=== PATIENT | male | born 1985 | race Caucasian/White ===

== ENCOUNTER → 2021-10-07 10:32 | Outpatient (REF) | payer OTHER, SELFPAY ==
--- NOTE | 2021-10-07 | CA_ITS ---
Acquisition Time: 2021-10-07 10:48:44 Total Exercise Time: 00:14:40 Test Indications: CP Medications: SEE CHART Protocol: BREA Max HR: 171 BPM 91% of Pred: 187 BPM Max BP: 174/070 mmHG Max Work Load: 17.2 METS Exercis stress test with exercise 14 min 40 sec of Brea protocol, achieving 91% MPHR, 17.2 METS, without anginal symptoms, with isolated PVC, with normotensive response to exercise, without EKG changes meeting criteria for ischemia. Test reviewed with Dr Craig. Referred By: Saul Valente Overread By: MILLI ELLIS
== END ==
LOC: HO.CARD 10:32
PROVIDERS: PCP Internal Medicine Medical Oncology; Visit Provider Internal Medicine Medical Oncology
DX: R07.89 Other chest pain (principal)
CPT/HCPCS: 93017

== ENCOUNTER → 2021-10-08 07:29 | Outpatient (REF) | payer OTHER, SELFPAY ==
--- NOTE | 2021-10-08 07:33 | CA_ITS ---
Transthoracic Echocardiogram Patient (Last, First, Middle): Qamar Harrington, Gender: Male Date of : 1985 Age: 35 Procedure Date: 10/08/2021 Procedure Type: Transthoracic Echocardiogram Location: OP Height: 177.8 cm Weight: 70.31 kg BSA: 1.87 m2 Heart Rate: bpm BP: 130 / 65 mmHg Software Project Manager: BARBARA Referring MD: Saul Valente MD Symptoms: CP Study Quality: Good ECG Rhythm: Sinus Conclusions: - The left ventricular systolic function is low normal. The visually estimated ejection fraction is between 50-55%. - No obvious valvular pathology seen on this study. Findings Left Ventricle Normal left ventricular cavity size. There is normal left ventricular wall thickness. The left ventricular systolic function is low normal. The visually estimated ejection fraction is between 50-55%. There is no evidence of regional wall motion abnormalities. Diastolic function is normal for age. Right Ventricle Normal right ventricular cavity size and systolic function. Atria Both atria are normal in size. Aortic Valve There is a normal trileaflet aortic valve. There is no aortic valve stenosis. There is no aortic valve regurgitation. Mitral Valve The mitral valve appears normal. There is trace mitral valve regurgitation. There is no mitral valve stenosis. Pulmonic Valve The pulmonic valve was not well visualized. Tricuspid Valve Normal tricuspid valve structure. There is no tricuspid valve regurgitation. Tricuspid regurgitation envelope is inadequate for calculation of right ventricular systolic pressure. Great Vessels The aortic annulus, sinuses of valsalva, and asc aorta are normal in size. Venous The inferior vena cava is normal in size and collapses greater than 50% with inspiration. Pericardium/Pleural There is no evidence of pericardial effusion. Prior Study Comparison No prior study available for comparison. Recommendations, Care & Conclusions No obvious valvular pathology seen on this study. Measurements 2D Linear Measurements IVSd: 0.80 0.6-0.9/0.6-1.0 cm LVIDd: 4.98 3.9-5.3/4.2-5.9 cm LVIDd Index: 2.66 2.4-3.2/2.2-3.1 cm/m2 LVIDs: 3.18 2.0-3.6 cm LVPWd: 0.95 0.7-1.1 cm LA Diam: 2.70 2.7-3.8/3.0-4.0 cm LAIDs Index: 1.44 1.5-2.3 cm/m2 LV Mass: 188.71 67-162/88-224 g LV Mass Index: 100.91 43-95/49-115 g/m2 LVOT Diam: 2.40 3.0+(-)1.3 cm 2D Systolic Function EF 4C: 54.10 >55% EF 2C: 60.80 >55% EF BiP: 59.20 >55% Mitral Valve MV Pk E: 0.45 MV PK A: 0.31 MV Decel Time: 183.00 E/A: 1.50 E'Lateral: 17.20 E'Medial: 11.40 E/E' Med: 4.00 E/E' Lat: 2.60 PHT: 54.00 MVA PHT: 4.07 Decel Swift: 2.48 Aortic Valve AoV Pk Martín: 0.87 AoV Pk Grad: 3.00 LVOT LVOT Pk Martín: 0.70 LVOT Mn Martín: 0.48 LVOT VTI: 0.16 LVOT Pk Grad: 2.00 LVOT Mn Grad: 1.00 LVOT Diam: 2.40 LVOT Area: 4.52 Diastolic Function MV Pk E: 0.45 MV Pk A: 0.31 E/A: 1.50 E'Medial: 11.40 E/E' Med: 4.00 E' Laterial: 17.20 E/E' Lat: 2.60 Right Ventricle TAPSE (mm): 2.30 TVS' Martín: 13.80 Tricuspid Valve RA Press: 3.00 Great Vessels Aorta Sinus of Valsalva: 3.44 2.0-3.5 cm Ao Asc: 3.10 2.1-3.4 cm Updated in Other Vendor System with Status of Final Adrian Craig MD electronically signed on 10/10/2021 11:06:30 AM with status of Final
== END ==
LOC: HO.CARD 07:29
PROVIDERS: PCP Internal Medicine Medical Oncology; Visit Provider Internal Medicine Medical Oncology
DX: R07.9 Chest pain, unspecified (principal)
CPT/HCPCS: 93306

== ENCOUNTER 2024-06-28 15:54 | Outpatient (REF) | payer OTHER, SELFPAY ==
--- NOTE | ~2024-06-28 | US_ITS ---
EXAMINATION: US TRIPLEX LOWER EXTREMITY, LEFT CLINICAL INFORMATION: Pain left thigh, rule out DVT COMPARISON: None available. TECHNIQUE: Color-flow triplex imaging with spectral analysis and compression Doppler were performed on the left lower extremity. FINDINGS: Respiratory variation, normal compression and augmented flow are noted throughout the left lower extremity. The visualized common femoral vein, superficial femoral vein, profunda femoral vein, popliteal vein and midcalf peroneal and posterior tibial venous segments show no evidence of deep venous thrombosis. There is no Segura's cyst. US/US venous duplex LE LT IMPRESSION: No evidence of deep venous thrombosis involving the left lower extremity. Electronically signed by: Osman Ta DO 06/28/2024 04:42 PM EST
--- OUTSIDE RECORDS SUMMARY | 2024-07-04 04:23 | XMS_ITS ---
Author Organization Saul Valente III, MD Address [address] [address] Care Team Providers Care Ui Programmer Name Role Phone Saul Valente Primary Care Provider Allergies Allergen (clinical drug ingredient) Drug/Non Drug Allergy documented on EMR Reaction Allergy Type Onset Date Status No Known Drug Allergy Unknown Drug Allergy Active Results Component Value Reference Range Notes URINE DIP STICK Reviewed date:09/27/2023 03:48:04 PM Interpretation: Performing Lab: Notes/Report: SG 1.010 1.005 - 1.025 pH 5.0 5.0 - 9.0 MADDIE Negative Negative - NIT Negative Negative - PRO 15 Negative - Trace GLU Negative Negative - KET Negative Negative - UBG 0.2 0.1 - 1.8 IVETT Negative 0.2 - 1.3 BLD Negative Negative - Reason For Referral Reason consult and treat Diagnosis 1 Vasectomy evaluation (Z30.09) Referral Organization Saul Valente III, MD Referring Provider First Name Saul Referring Provider Last Name Sidra Referring Provider Speciality Internal M edicine Referred Provider Joselyn Zarate Referred Provider Specialty Urology General Notes Teresa Bustillos 2023 10:58:31 AM EDT > Faxed with progress note and referral. Tressa Amber 10/28/2023 09:25:29 AM EDT > patient has not called [facility]. Patient does have to call himself and schedule an appointment. Patient had an appointment last year for the same reason and he was a no show to that appointment. I called patient and left a message with the contact information. Tressa Amber 11/08/2023 09:59:24 AM EDT > Called patient to see if appointment has been scheduled. Left message to give the office a call back, Teresa Bustillos 11/24/2023 10:30:16 AM EDT > Called Patient to see if appointment has been scheduled. Left message to give the office a call back. Referral Priority Routine REASON FOR VISIT Annual Exam Social History Tobacco Use: Social History Observation Description Date Details (start date - stop date) Former Smoker NA - NA Sex Assigned At : Social History Observation Description Sex Assigned At Male Tobacco Use/Smoking Question Answer Notes Patient is a former smoker How long has it been since you last smoked? 5-10 years Additional Findings: Tobacco Non-User Ex-cigaret te smoker Alcohol Screen Question Answer Notes Did you have a drink contain ing alcohol in the past year? Yes How often did you have a dri nk containing alcohol in the past year? 2 to 3 times a week (3 points) How many drinks did you have on a typical day when you were drinking in the past year? 1 or 2 drinks (0 point) How often did you have 6 or more drinks on one occasion in the past year? Never (0 point) Points 3 Interpretation Negative Vital Signs Temperature 99.1 degrees Fahrenheit 09/27/19 24 Blood pressure systolic 144 mm Hg 09/27/19 24 Blood pressure diastolic 79 mm Hg 024 Heart Rate 88 /min 09/27/2023 Height 69 in 09/27/2023 Weight 144 lbs 09/27/2023 BMI 21.26 kg/m2 09/27/2023 Encounters Encounter Location Date Provider Diagnosis Saul Valente III, MD [address] [place] [address] [place] [address] 09/27/2023 Saul Valente History of seizure Z87.898 ; Opioid dependence in remission F11.21 ; Former smoker Z87.891 and History of depression Z86.59 Assessments Encounter Date Diagnosis (ICD Code) Assessment Notes Treatment Notes Treatment Clinical Notes 09/27/2023 History of seizure (ICD-10 - Z87.898) He has had no seizures since his last visit. 09/27/2023 Opioid dependence in remission (ICD-10 - F11.21) He had a period of oral opiate use in high school after his mother . He has been to rehabilitation and is now in recovery. 09/27/2023 Former smoker (ICD-10 - Z87.891) He has a plan to prevent relapse in times of stress and illness. 09/27/2023 History of depression (ICD-10 - Z86.59) He did not appear depressed today. He has not takien antidepressant medication in many years. Surveillance for recurrence will be done. Plan Of Treatment Pending Test Test Name Order Date PROFILE, FASTING (COMPREHENSIVE METABOLI C) 09/27/2023 CBC WITH AUTO DIFF 09/27/2023 Lipid Panel 09/27/2023 Referrals Referral Date Details 09/27/2023 09/27/2023, [facility] Follow Up: 1 Year, Reason: O V, Annual Exam Provider Name:Saul Valente, 07/19/2024 10:15:00 AM, [address] [place] [address] [address], [place], [phone], Provider Name:Saul Valente, 09/28/2024 03:30:00 PM, [address] [place] [address] [address], [place], [phone], Progress Notes * Qamar COLEMANDOB:1985 (37 yo M)Acc No.[id number]:09/27/2023 Progress Notes Patient:?Qamar Coleman Provider:?Saul Valente MD :1985???Age:37 Y???Sex:Male Abdon e:09/27/2023 Address:[address] [place] [address] [facility] Subjective: * Chief Complaints: * ???Annual Exam * HPI: ???Depression Screening:? He returns to the office at the age of 37 for an annual physical examination. He had an unusual headache in his occipital area 2 months ago but it has resolved. He is not currently working. He is taking care of his 2 children. His is employed. He had a corneal abrasion several months ago for which he went to urgent care. His vitiligo is unchanged. He feels healthy and well. His appetite is good and he is sleeping well.He is not smoking. ?PHQ-9?Little interest or pleasure in doing things?Not at all ?Feeling down, depressed, or hopeless?Not at all ?Trouble falling or staying asleep, or sleeping too much?Not at all ?Feeling tired or having little energy?Not at all ?Poor appetite or overeating?Not at all ?Feeling bad about yourself or that you are a failure, or have let yourself or your family down?Not at all ?Trouble concentrating on things, such as reading the newspaper or watching television?Not at all ?Moving or speaking so slowly that other people could have noticed; or the opposite, being so fidgety or restless that you have been moving around a lot more than usual?Not at all ?Thoughts that you would be better off or of hurting yourself in some way?Not at all ?Total Score?0 ???COVID-19 Screening:?Questions?Have you experienced fever, chills, cough, sore throat, shortness of breath, difficulty breathing, muscle aches, loss of taste or smell??No ?Have you been exposed to the virus within the last 10 days??No ?Have you travelled internationally in the last 10 days??No ?Have you been exposed to COVID-19 in the past??No ???SDOH Questions:?SDOH Questions?In the past year have you been worried about losing your housing??No ?In the past year have you or any family members you live with been unable to get any of the following when it was really needed? Check all that apply:?None * ROS:?General/Constitutional:?pain?only normal aches and pains.?Chills?denies.?Fatigue?admits.?Fever?denies.?ENT:?Decreased hearing?denies.?Respiratory:?Cough?denies.?Cardiovascular:?Chest pain with exertion?denies.?Dyspnea on exertion?denies.?Shortness of breath?denies.?Gastrointestinal:?Constipation?occasional.?Decreased appetite?denies.?Diarrhea?denies.?Heartburn?occasional.?Nausea?denies.?Rectal bleeding?denies.?Vomiting?denies.?Hematology:?bruising?denies.?petechiae?denies.?Swollen glands?none have been noted.?Genitourinary:?Frequent urination?denies.?Musculoskeletal:?Muscle aches?denies.?Painful joints?denies.?Sciatica?denies.?Weakness?denies.?Skin:?Itching?denies.?Rash?denies.?Skin lesion(s)?denies.?Neurologic:?Difficulty speaking?denies.?Dizziness?denies.?Headache?denies.?Low back pain?denies.?Psychiatric:?Depressed mood?denies.? * Medical History:? * Surgical History:?dental ext raction * Hospitalization/Major Diagno stic Procedure:?Denies Past Hospitalization * Family History:?Father: live salmeron?Mother: 50 yrs, Breast cancer, onset age 40, diagnosed with Cancer.?1 brother(s) , 2 sister(s) - healthy. 1 son(s) , 1 daughter(s) . .? His mother's sister had breast cancer in her early 40s. His 2 sisters have had genetic testing and are positive for BRCA mutations. His mother at the age of 50 of breast cancer. His father is alive and well. A sister is planning on bilateral mastectomies. His uncle and anut are bipolar disordera and depression. * Social History:?Tobacco Use:?Tobacco Use/Smoking?Patient is a?former smoker ?How long has it been since you last smoked??5-10 years ?Additional Findings: Tobacco Non-User?Ex-cigarette smoker ???Drugs/Alcohol:?Drugs?Have you used drugs other than those for medical reasons in the past 12 months??Yes ?Marijuana??Yes ?Alcohol Screen?Did you have a drink containing alcohol in the past year??Yes ?How often did you have a drink containing alcohol in the past year??2 to 3 times a week (3 points) ?How many drinks did you have on a typical day when you were drinking in the past year??1 or 2 drinks (0 point) ?How often did you have 6 or more drinks on one occasion in the past year??Never (0 point) ?Points?3 ?Interpretation?Negative ???He was born in [place], [place]. He has been for one year to Ariana. They have no children. 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 He has some exposures to paint. * Medications:?None * Allergies:?No Known Drug All ergyno[Allergies Verified] Objective: * Vitals:?Ht: 69, Wt: 144, BMI :21.26, BP: 144/79, HR: 88, Temp: 99.1, Wt-k.32. * ???Past Orders: Lab:URINE DIP STICK * Order Date 09/27/2023 07/29/2021 SG 1.010 (Ref Range: 1.005 - 1.025) 1.020 pH 5.0 (Ref Range: 5.0 - 9.0) 6.5 MADDIE Negative (Ref Range: Negative -) neg NIT Negative (Ref Range: Negative -) neg PRO 15 (Ref Range: Negative - Trace) trace GLU Negative (Ref Range: Negative -) normal KET Negative (Ref Range: Negative -) neg UBG 0.2 (Ref Range: 0.1 - 1.8) neg IVETT Negative (Ref Range: 0.2 - 1.3) neg BLD Negative (Ref Range: Negative -) neg Menstrating NR n/a * Examination: ???General Examination: ?GENERAL APPEARANCE:?pleasant, well nourished, well developed, in no acute distress, calm and relaxed , man.?HEAD:?atraumatic, normocephalic.?EYES:?eomi, perrla, anicteric, conjugate.?EARS:?normal.?NOSE:?septum intact.?ORAL CAVITY:?normal, unremarkable.?NECK/THYROID:?no jugular venous distention, no carotid bruit, thyroid normal.?LYMPH NODES:?no enlarged lymph nodes,spleen normal.?SKIN:?no suspicious lesions, anicteric.?HEART:?no clicks, gallops, murmurs, or rubs, regular rhythm, S1, S2 normal, no s3, or vascular bruits.?LUNGS:?clear to auscultation .?BREASTS:??no masses palpable bilaterally.?ABDOMEN:?bowel sounds normal, no ascites, no organomegaly, no mass.?RECTAL EXAM:?not examined.?MUSCULOSKELETAL:?extremities unremarkable, no clubbing, cyanosis or edema.?PERIPHERAL PULSES:?normal.?NEUROLOGIC:?alert and oriented, cranial nerves 2-12 grossly intact, deep tendon reflexes 2+ symmetrical, motor strength normal upper and lower extremities, sensory exam intact.?PSYCH:?alert, oriented.? Assessment: * Assessment: 1.?History of seizure - Z87. 898 (Primary), He has had no seizures since his last visit.?2.?Opioid dependence in remission - F11.21, He had a period of oral opiate use in high school after his mother . He has been to rehabilitation and is now in recovery.?3.?Former smoker - Z87.891, He has a plan to prevent relapse in times of stress and illness.?4.?History of depression - Z86.59, He did not appear depressed today. He has not takien antidepressant medication in many years. Surveillance for recurrence will be done.? Plan: * Treatment: * Labs:? * ?Lab: PROFILE, FASTING ( COMPREHENSIVE METABOLIC) ?Lab: CBC WITH AUTO DIFF ?Lab: Lipid Panel ?Lab: URINE DIP STICK ? Value Reference Range ?SG 1.010 1.005 - 1.025 * ?pH 5.0 5.0 - 9.0 * ?MADDIE Negative Negative - * ?NIT Negative Negative - * ?PRO 15 Negative - Trac e * ?GLU Negative Negative - * ?KET Negative Negative - * ?UBG 0.2 0.1 - 1.8 * ?IVETT Negative 0.2 - 1.3 * ?BLD Negative Negative - * Procedure Codes:?68503 URINE -NO MICRO * Preventive Medicine:? ??Counseling:?Smoking/Tobacco Use?Patient counseled on the dangers of tobacco use and urged to quit.?09/27/2023 * Follow Up:?1 Year (Reason: O V, Annual Exam) * Images: * Sign off status: Completed true * Provider:?Saul Valente MD Date:?11/2023 Generated for Emperatriz doyle/Benita/eTransmitting on:?07/04/2024 04:22 AM EST History and Physical Notes * HPI (History of Present Illness) Category Sub-Category Detail Notes Depression Screening PHQ-9 Little inte rest or pleasure in doing things: Not at all Feeling down, depressed, or hopeless: No t at all Trouble falling or staying asleep, or sl eeping too much: Not at all Feeling tired or having little energy: N ot at all Poor appetite or overeating: Not at all Feeling bad about yourself o r that you are a failure, or have let yourself or your family down: Not at all Trouble concentrating on thi ngs, such as reading the newspaper or watching television: Not at all Moving or speaking so slowly that other people could have noticed; or the opposite, being so fidgety or restless that you have been moving around a lot more than usual: Not at all Thoughts that you would be b elda off or of hurting yourself in some way: Not at all Total Score: 0 COVID-19 Screening Questions Have you expe rienced fever, chills, cough, sore throat, shortness of breath, difficulty breathing, muscle aches, loss of taste or smell?: No Have you been exposed to the virus withi n the last 10 days?: No Have you travelled internationally in e last 10 days?: No Have you been exposed to COVID-19 in the past?: No SDOH Questions SDOH Questions In the past year have you been worried about losing your housing?: No In the past year have you or any family members you live with been unable to get any of the following when it was really needed? Check all that apply:: None Examination Category Sub-Category Detail Notes General Examination GENERAL APPEARANCE: pleasant , well nourished, well developed, in no acute distress, calm and relaxed , man HEAD: atraumatic, normocep halic EYES: eomi, perrla, anicte cristal, conjugate EARS: normal NOSE: septum intact NECK/THYROID: no jugular venous di stention, no carotid bruit, thyroid normal HEART: no clicks, gallops, murmurs, or rubs, regular rhythm, S1, S2 normal, no s3, or vascular bruits LUNGS: clear to auscultatio n ABDOMEN: bowel sounds normal, no ascites, no organomegaly, no mass NEUROLOGIC: alert and oriented, cranial nerves 2-12 grossly intact, deep tendon reflexes 2+ symmetrical, motor strength normal upper and lower extremities, sensory exam intact SKIN: no suspicious lesion s, anicteric PERIPHERAL PULSES: normal BREASTS: no masses palpable b ilaterally MUSCULOSKELETAL: extremities unremark able, no clubbing, cyanosis or edema LYMPH NODES: no enlarged lymph no danielle,spleen normal RECTAL EXAM: not examined PSYCH: alert, oriented ORAL CAVITY: normal, unremarkable Consultation Request Notes Referral Date Referring Provider Referred Provider Not es 09/27/2023 Saul Valente [place], Urology con sult and treat
--- OUTSIDE RECORDS SUMMARY | 2024-07-04 04:23 | XMS_ITS | Patient Health Record ---
Author Organization Saul Valente III, MD Address [address] [facility] [address] Care Team Providers Care Water Sander Name Role Phone Saul Valente Primary Care Provider [phone] Allergies Allergen (clinical drug ingredient) Drug/Non Drug [...] 0.2 - 1.3 BLD Negative Negative - US venous duplex LE LT (Not yet reviewed by provider) Interpretation: Performing Lab: Notes/Report: [address] [address] Ultrasound Report Signed Patient: Qamar Harrington MR#: [id number] : 1985 Acct:[id number] Age/Sex: 38 / M ADM Date: 06/28/24 Loc: .US Attending Dr: Saul Valente MD Ordering Physician: Saul Valente MD Date of Service: 06/28/24 Procedure(s): US venous duplex LE LT Accession Number(s): [id number] cc: Saul Valente MD EXAMINATION: US TRIPLEX LOWER EXTREMITY, LEFT CLINICAL INFORMATION: Pain left thigh, rule out DVT COMPARISON: None available. TECHNIQUE: Color-flow triplex imaging with spectral analysis and compression Doppler were performed on the left lower extremity. FINDINGS: Respiratory variation, normal compression and augmented flow are noted throughout the left lower extremity. The visualized common femoral vein, superficial femoral vein, profunda femoral vein, popliteal vein and midcalf peroneal and posterior tibial venous segments show no evidence of deep venous thrombosis. There is no Segura's cyst. US/US venous duplex LE LT IMPRESSION: No evidence of deep venous thrombosis involving the left lower extremity. 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 TECHNIQUE: Color-flow triplex i maging with spectral analysis and compression Doppler were perform ed on the left lower extremity. FINDINGS: Respiratory variatio n, normal compression and augmented flow are noted throughout the left lower extremity. The visualized common femoral vein, superficial fe moral vein, profunda femoral vein, popliteal vein and midcalf peroneal and posterior tibial venous segments show no evidence of deep juan ous thrombosis. There is no Segura's cyst. U S/US venous duplex LE LT IMPRESSION: No evidence of deep venous thrombosis involving the left lower extremity. 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 , Teresa Bustillos 10/28/2023 09:25:29 AM EDT > patient has not called [facility]. Patient does have to call himself and schedule an appointment. Patient had an appointment last year for the same reason and he was a no show to that appointment. I called patient and left a message with the contact information. , Teresa Bustillos 11/08/2023 09:59:24 AM EDT > Called patient to see if appointment has been scheduled. Left message to give the office a call back, Teresa Bustillos 11/24/2023 10:30:16 AM EDT > Called Patient to see if appointment has been scheduled. Left message to give the office a call back. Referral Priority Routine Social History Sex Assigned At : Social History Observation Description Sex Assigned At Male Alcohol Screen Question Answer Notes Did you [...] Never (0 point) Points 3 Interpretation Negative Problems Problem Type SNOMED Code ICD Code Onset Dates Problem Status W/U Status Risk Notes Problem 3597833 Former smoker (Z87.891) Active confirmed He has a plan t o prevent relapse in times of stress and illness. Problem 322218275 History of depression (Z86.59) Active confirmed He did not appear depressed today. He has not takien antidepressant medication in many years. Surveillance for recurrence will be done. Problem 301758209 History of seizure (Z87.898) Active confirmed He has had no seizures since his last visit. Problem 941664881 Opioid dependence in remission (F11.21) Active confirmed He had a period of oral opiate use in high school after his mother . He has been to rehabilitation and is now in recovery. Vital Signs Heart Rate 82 /min 06/27/2024 Temperature 98.2 degrees Fahrenheit 06/27/2024 Blood pressure diastolic 82 mm Hg 06/27/2024 Height 69 in 06/27/2024 Blood pressure systolic 135 mm Hg 06/27/2024 Weight 150 lbs 06/27/2024 BMI 22.15 kg/m2 06/27/2024 Encounters Encounter Location Date Provider Diagnosis Saul Valente III, MD [address] [place] [address] [address] [place] [address] 09/27/2023 Saul Valente History of seizure Z87.898 ; Opioid dependence in remission F11.21 ; Former smoker Z87.891 and History of depression Z86.59 Salu Valente III, MD [address] [place] [address] [address] [place] [address] 06/27/2024 Saul Valente Leg pain, left M79.605 ; History of seizure Z87.898 and History of depression Z86.59 Assessments Encounter [...] to rehabilitation and is now in recovery. 06/27/2024 Leg pain, left (ICD-10 - M79.605) He will have an ultrasound to rule out DVT. This is likely tendinitis or inflammation of the muscle from overuse. If the ultrasound is negative he will use heat rest and ibuprofen. 06/27/2024 History of seizure (ICD-10 - Z87.898) He has had no seizures since his last visit. 09/27/2023 Former smoker (ICD-10 - Z87.891) He has a plan to prevent relapse in times of stress and illness. 06/27/2024 History of depression (ICD-10 - Z86.59) He did not appear depressed today. He has not takien antidepressant medication in many years. Surveillance for recurrence will be done. 09/27/2023 History of depression (ICD-10 - Z86.59) He did not appear depressed today. He has not takien antidepressant medication in many years. Surveillance for recurrence will be done. Plan Of Treatment Pending Test Test Name Order Date PROFILE, FASTING (COMPREHENSIVE METABOLI C) 09/27/2023 PROFILE, FASTING (COMPREHENSIVE METABOLI C) 07/04/2018 PROFILE, FASTING (COMPREHENSIVE METABOLI C) 09/24/2022 LIPID PANEL 07/04/2018 LIPID PANEL 09/24/2022 PSA, TOTAL 07/04/2018 CBC w DIFF 09/24/2022 CBC w DIFF 07/04/2018 US LEG LT VENOUS DOPPLER 06/27/2024 Echocardiogram 07/29/2021 CBC WITH AUTO DIFF 09/27/2023 ECHO STRESS TEST 07/29/2021 Lipid Panel 09/27/2023 CA stress test 09/24/2021 US venous duplex LE LT 06/28/2024 Next Appt Details Provider Name:Saul Valente, 07/19/2024 10:15:00 AM, [address] [place] [address] [address], [place], [address], Provider Name:Saul Valente, 09/28/2024 03:30:00 PM, [address] [place] [address] [address], [place], [address], Insurance Providers Payer Name Payer Address Payer Phone Subscriber Number Group Number Insured Name Patient Relationship to Insured Coverage Start Date Coverage End Date [facility] [address] [address] [place], [place] [id number] [phone] [id number] Qamar Harrington Self - patient is the insured Medical (General) History Medical History History ICD Code seizure age 17 opiate addiction age 17 through 20, nidia vering history of depression in high school former smoker No history Surgical History Surgery Date(Month/Year) dental extraction No history Hospitalization History Reason Date(Month/Year) No history
--- OUTSIDE RECORDS SUMMARY | 2024-07-04 04:23 | XMS_ITS ---
Author Organization Saul Valente III, MD Address [address] [place] [address] [place] [address] Care Team Providers Care Guest Relations Associate Name Role Phone Saul Valente Primary Care Provider Allergies Allergen (clinical drug ingredient) Drug/Non Drug Allergy documented on EMR Reaction Allergy Type Onset Date Status No Known Drug Allergy Unknown Drug Allergy Active REASON FOR VISIT Left side hamstring muscle pain, History of seizures, History of depression Social History Sex Assigned At : Social [...] Points 3 Interpretation Negative Vital Signs Temperature 98.2 degrees Fahrenheit 06/27/20 24 Blood pressure systolic 135 mm Hg 06/27/20 24 Blood pressure diastolic 82 mm Hg 024 Heart Rate 82 /min 06/27/2024 Height 69 in 06/27/2024 Weight 150 lbs 06/27/2024 BMI 22.15 kg/m2 06/27/2024 Encounters Encounter Location Date Provider Diagnosis Saul Valente III, MD [address] [place] [address] [place] [address] 06/27/2024 Saul Valente Leg pain, left M79.605 ; History of seizure Z87.898 and History of depression Z86.59 Assessments Encounter Date Diagnosis (ICD Code) Assessment Notes Treatment Notes Treatment Clinical Notes 06/27/2024 Leg pain, left (ICD-10 - M79.605) He will have an ultrasound to rule out DVT. This is likely tendinitis or inflammation of the muscle from overuse. If the ultrasound is negative he will use heat rest and ibuprofen. 06/27/2024 History of seizure (ICD-10 - Z87.898) He has had no seizures since his last visit. 06/27/2024 History of depression (ICD-10 - Z86.59) He did not appear depressed today. He has not takien antidepressant medication in many years. Surveillance for recurrence will be done. Plan Of Treatment Pending Test Test Name Order Date US LEG LT VENOUS DOPPLER 06/27/2024 Next Appt Details Follow Up: 3 Weeks, In three weeks, Reason: Telehealth, To ensure the hamstring pain has improved Provider Name:Saul Valente, 07/19/2024 10:15:00 AM, [address] [place] [address] [address], [place], [address], Provider Name:Saul Valente, 09/28/2024 03:30:00 PM, [address] [place] [address] [address], [place], [address], Progress Notes * JAREDQamar PittDOB:1985 (38 yo M)Acc No.[id number]:06/27/2024 Progress Notes Patient:?Qamar COLEMAN Provider:?aSul Valente MD :1985???Age:38 Y???Sex:Male Abdon e:06/27/2024 Address:[address] [place] [address] Adele Saldana [facility] Subjective: * Chief Complaints: * ???Left side hamstring muscl e painHistory of seizuresHistory of depression * HPI: ???COVID-19 Screening:?Questions?Have you experienced fever, chills, cough, sore throat, shortness of breath, difficulty breathing, muscle aches, loss of taste or smell??No ?Have you been exposed to the virus within the last 10 days??No ?Have you travelled internationally in the last 10 days??No ?Have you been exposed to COVID-19 in the past??Yes ???:? The patient, a 38-year-old male, presented with a complaint of pain in the back of his left hamstring muscle that started five days ago. The pain has not worsened but has not improved either. The patient reported that the pain is more noticeable when standing than when sitting. He denied any recent strain or injury to the area. The patient also denied any swelling in the leg. The doctor performed a physical examination and found no signs of a blood clot, which was a concern. The patient has not taken any new medications or started any new exercise routines. The patient reported that the pain does not worsen with movement or pressure on the area. * ROS:?General/Constitutional:?Admits?pain,?Left hamstring muscles at rest and with weightbearing.?Chills?denies.?Fatigue?admits.?Fever?denies.?ENT:?Decreased hearing?denies.?Respiratory:?Cough?denies.?Cardiovascular:?Chest pain with exertion?denies.?Dyspnea on exertion?denies.?Shortness of breath?denies.?Gastrointestinal:?Constipation?denies.?Decreased appetite?denies.?Diarrhea?denies.?Heartburn?denies.?Nausea?denies.?Rectal bleeding?denies.?Vomiting?denies.?Hematology:?bruising?denies.?petechiae?denies.?Swollen glands?none have been noted.?Genitourinary:?Frequent urination?denies.?Musculoskeletal:?Muscle aches?Left handspring muscles for several days without antecedent.?Painful joints?denies.?Sciatica?denies.?Weakness?denies.?Skin:?Itching?denies.?Rash?denies.?Skin lesion(s)?denies.?Neurologic:?Difficulty speaking?denies.?Dizziness?denies.?Headache?denies.?Low back pain?denies.?Psychiatric:?Depressed mood?denies.? * Medical History:? * Surgical History:?dental ext raction No history * Hospitalization/Major Diagno stic Procedure:?No history * Family History:?Father: live [place]?Mother: 50 yrs, diagnosed with Cancer.?1 brother(s) , 2 sister(s) [...] disordera and depression. * Social History:?Tobacco Use:?Tobacco Use/Smoking?.?Drugs/Alcohol:?Drugs?Have you used drugs other than those for [...] point) ?Points?3 ?Interpretation?Negative ???He was born in [place], [place]. He has been for one year to Ariana. They have no children. 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 He has some exposures to paint. Smoking - The patient does not smoke. * Medications:?None * Allergies:?No Known Drug All ergyno[Allergies Verified] Objective: * Vitals:?Ht: 69, Wt: 150, BMI :22.15, BP: 135/82, HR: 82, Temp: 98.2, Wt-k.04. * Examination: ???General Examination: ?GENERAL APPEARANCE:?pleasant, well nourished, well developed, in no acute distress, calm and relaxed, man.?HEAD:?atraumatic, normocephalic.?EYES:?eomi, perrla, anicteric, conjugate.?EARS:?normal.?NOSE:?septum intact.?ORAL CAVITY:?normal, unremarkable.?NECK/THYROID:?no jugular venous distention, no carotid bruit, thyroid normal.?LYMPH NODES:?no enlarged lymph nodes,spleen normal.?SKIN:?no suspicious lesions, anicteric.?HEART:?no clicks, gallops, murmurs, or rubs, regular rhythm, S1, S2 normal, no s3, or vascular bruits.?LUNGS:?clear to auscultation .?BREASTS:??no masses palpable bilaterally.?ABDOMEN:?bowel sounds normal, no ascites, no organomegaly, no mass.?RECTAL EXAM:?not examined.?MUSCULOSKELETAL:?extremities unremarkable, no clubbing, cyanosis or edema, Range of motion of the knee joint and ankle joint and hip joint on the left does not reproduce the pain.? Straight leg raising does not reproduced the pain, Examination unremarkable.?PERIPHERAL PULSES:?normal.?NEUROLOGIC:?alert and oriented, cranial nerves 2-12 grossly intact, deep tendon reflexes 2+ symmetrical, motor strength normal upper and lower extremities, sensory exam intact.?PSYCH:?alert, oriented.? : ???Hamstring Examination - No signs of a blood clot or swelling were found. Pain did not worsen with movement or pressure. ??? Assessment: * Assessment: 1.?Leg pain, left - M79.605 (Primary)???Notes :He will have an ultrasound to rule out DVT.? This is likely tendinitis or inflammation of the muscle from overuse.? If the ultrasound is negative he will use heat rest and ibuprofen.???2.?History of seizure - Z87.898???Notes :He has had no seizures since his last visit.???3.?History of depression - Z86.59???Notes :He did not appear depressed today. He has not takien antidepressant medication in many years. Surveillance for recurrence will be done.??? Plan: * Treatment: * Procedure Codes:? * Follow Up:?3 Weeks, In three weeks (Reason: Telehealth, To ensure the hamstring pain has improved) * Images: * Sign off status: Completed true * Provider:?Saul Valente MD Date:?10/2023 Generated for Emperatriz doyle/Benita/eTransmitting on:?07/04/2024 04:22 AM EST History and Physical Notes * HPI (History of Present Illness) Category Sub-Category Detail Notes COVID-19 Screening Questions Have you expe rienced fever, chills, cough, sore throat, shortness of breath, difficulty breathing, muscle aches, loss of taste or smell?: No Have you been exposed to the virus withi n the last 10 days?: No Have you travelled internationally in [facility] last 10 days?: No Have you been exposed to COVID-19 in the past?: Yes Examination Category Sub-Category Detail Notes General Examination GENERAL APPEARANCE: pleasant , well nourished, well developed, in no acute distress, calm and relaxed, man HEAD: atraumatic, normocep halic EYES: eomi, [...] extremities unremark able, no clubbing, cyanosis or edema, Range of motion of the knee joint and ankle joint and hip joint on the left does not reproduce the pain. Straight leg raising does not reproduced the pain, Examination unremarkable LYMPH NODES: no enlarged lymph no danielel,spleen normal RECTAL EXAM: not examined PSYCH: alert, oriented ORAL CAVITY: normal, unremarkable
== END 2024-06-28 15:55 | disposition home or self-care (01) ==
LOC: HO.US 15:54
PROVIDERS: PCP Internal Medicine Medical Oncology; Visit Provider Internal Medicine Medical Oncology
DX: M79.605 Pain in left leg (principal)
CPT/HCPCS: 93971